=== PATIENT | female | born 1955 | race Caucasian/White ===

== ENCOUNTER 2023-04-20 13:15 | Emergency (ER) | payer OTHER, SELFPAY ==
[2023-04-20 13:25] VITALS: BP 131/87
[2023-04-20 13:46] LABS: % Basophils 0.4 % (0-2); % Eosinophils 1.1 % (0-6); % Immature Granulocytes 0.4 % (0-0.5); % Lymphocytes 12.9 % (20.5-51.1); % Monocytes 7.3 % (1.7-9.3); % Neutrophils 77.9 % (42.2-75.2); Absolute Eosinophils 0.1 10^3/uL (0-0.7); Absolute Lymphocytes 1.1 10^3/uL (1.2-3.4); Absolute Monocytes 0.6 10^3/uL (0.1-0.6); Absolute Neutrophils 6.4 10^3/uL (1.4-6.5); Hematocrit 41.4 % (37.0-47.0); Hemoglobin 14.1 g/dL (12.0-16.0); Mean Corp Hgb Conc. 34.1 g/dL (33.0-37.0); Mean Corpuscular Hgb 30.5 pg (27.0-31.0); Mean Corpuscular Volume 89.6 fL (81.0-99.0); Mean Platelet Volume 9.1 fL (7.4-10.4); Nucleated Red Blood Cells % 0 %; Platelet Count 261 10^3/uL (130-400); Red Blood Cell Count 4.62 10^6/uL (4.20-5.40); Red Cell Dist. Width 13.2 % (11.5-14.5); White Blood Cell Count 8.2 10^3/uL (4.8-10.8)
[2023-04-20 14:02] LABS: ALT (SGPT) 16 U/L (0-35); AST (SGOT) 22 U/L (14-36); Albumin 4.3 g/dl (3.5-5.0); Alkaline Phosphatase 69 U/L (38-126); Blood Urea Nitrogen 18 mg/dl (7-17); Calcium 9.6 mg/dl (8.4-10.2); Carbon Dioxide 32 mmol/L (22-30); Chloride 99 mmol/L (98-107); Glucose 107 mg/dl (70-99); Lipase 151 U/L (23-300); Potassium 3.7 mmol/L (3.5-5.1); Sodium 137 mmol/L (135-145); Total Bilirubin 0.5 mg/dl (0.2-1.3); Total Protein 7.2 g/dl (6.3-8.2)
--- NOTE | 2023-04-20 17:33 | ED.GENMED ---
History of Present Illness
General
Chief Complaint: Abdominal Pain
Time Seen by Provider: 04/20/23 17:29
Travel History
Have you had any contact with someone who has COVID-19?: No
Do you have any symptoms of coronavirus? Fever > 100 degrees, chills, cough, shortness of breath, sore throat, loss of taste or smell, muscle aches, or headache?: No
History of Present Illness
History of Present Illness:
67-year-old female presents to the emergency department for evaluation of left lower quadrant abdominal pain. Pain has been intermittent for the past week associated with bloating. Bowel movements have varied from constipation to diarrhea. Does
have an underlying history of IBS. No prior surgeries to the abdomen, does have history of transgender male to female transition surgery
Past History
Past History
ED Past Medical History: GERD (hiatal hernia) and Other (Vertigo, IBS, kidney cyst); Negative Asthma, CAD, Cancer, HTN, Hypercholesterolemia or NIDDM
ED Past Surgical History: Other (Transgender surgery )
Social History
Tobacco: Non-smoker
Alcohol: None
Personal:
Living: with family
Employment: Employed
Review of Systems
Review of Systems
Allergies reviewed?: Yes
All Other Systems: ROS reviewed and negative except as documented in HPI and ROS
Phy Exam
Physical Exam
Physical Exam:
GEN: Well appearing, NAD, WDWN
HEENT: Oral mucosa moist, no scleral icterus
Cardiac: Regular rate
Lung: No respiratory distress, no tachypnea
Abdomen: Soft, nontender, no reproducible tenderness
MSK: No gross deformity or injuries
Skin: Good color, no pallor or jaundice, no rashes
Neuro: AO x3, moves all extremities freely
Psych: Calm, cooperative
Course
Orders/Labs/Results
Orders:
Orders
04/20/23 13:32
Complete Blood Count/With Diff Urgent
Comprehensive Metabolic Panel Urgent
Lipase Urgent
04/20/23 17:43
CT Abd/Pel (IV only)-DH only Urgent
Comment:
Reason For Exam: LLQ pain
Abnormal Lab Results
04/20/23
13:32
Absolute Lymphs (auto) 1.1 L 10^3/uL
(1.2-3.4)
Neutrophils % 77.9 H %
(42.2-75.2)
Lymphocytes % 12.9 L %
(20.5-51.1)
Carbon Dioxide 32 H mmol/L
(22-30)
BUN 18 H mg/dl
(7-17)
Creatinine 1.2 H mg/dL
(0.6-1.0)
Glucose 107 H mg/dl
(70-99)
04/20/23 13:32
04/20/23 13:32
Vital Signs
Initial and Last Documented VS:
Initial Vital Signs
Temp Pulse Resp BP Pulse Ox
97.9 F 105 16 131/87 98
04/20/23 13:25 04/20/23 13:25 04/20/23 13:25 04/20/23 13:25 04/20/23 13:25
Last Documented Vital Signs
Temp Pulse Resp BP Pulse Ox
97.8 F 75 16 119/85 100
04/20/23 17:37 04/20/23 17:37 04/20/23 17:37 04/20/23 17:37 04/20/23 17:37
MDM/Problems Addressed
MDM/Problems Addressed:
Imaging is unremarkable. Patient was quite adamant that the symptoms are comparable to past bouts of diverticulitis however imaging rules this out. Urinalysis is bland and labs are otherwise unremarkable. Likely rate underlying IBS, recommend
outpatient GI follow-up
*Critical Care Note
Total Time (30-74mins, 75-104mins- exclusive of procedures): Not Applicable
ED Attending Note
-
Portions of this chart may have been created with voice recognition software.� Occasional wrong word or��sound alike� substitutions may have occurred due to the inherent limitations of voice recognition software.
Discharge Plan
Departure
Patient Disposition: Home (Routine Discharge)
Date of Disposition: 04/20/23
Time of Disposition: 18:44
Patient with high blood pressure during this ER visit?: No
Discharge Problem:
Abdominal pain, lower
Instructions: Full Liquid Diet, Abdominal Pain
Prescriptions:
No Action
citalopram 20 MG tablet
10 mg PO DAILY
estradiol 1 APPLIC cream
1 applic topical DAILY
Patient Comments:
patient has pre draw up sysringe from pharmacy
dicyclomine 20 mg Tablet
20 mg PO QIDPRN PRN (Reason: as directed)
Referrals:
NONE,* [Active] -
Interventions
Interventions:
*Risk Screen - Suicide Last Done: 04/20/23 13:25
*General Assessment Last Done: 04/20/23 13:25
*Neglect/Abuse Screening Last Done: 04/20/23 13:25
ED- Fall Risk Assessment Last Done: 04/20/23 17:42
*ED COVID-19 Vaccine History Last Done: 04/20/23 17:41
*Nursing Disposition Last Done: 04/20/23 18:50
KV-Uahfjp-Wngclfzkkg Assessment Last Done: 04/20/23 17:38
Discharge Date and Time
Discharge Date/Time: 04/20/23 18:50
[2023-04-20 17:37] VITALS: BP 119/85
[2023-04-20 17:41] VITALS: BMI 18.7
== END 2023-04-20 18:50 | disposition home or self-care (01) ==
LOC: EMR 13:15
PROVIDERS: Student in an Organized Health Care Education/Training Program; EMERGENCY PHYSICIAN Emergency Medicine; FAMILY PHYSICIAN Physician Assistant Medical
DX: R10.30 Lower abdominal pain, unspecified (principal); K21.9 Gastro-esophageal reflux disease without esophagitis; K44.9 Diaphragmatic hernia without obstruction or gangrene; K58.9 Irritable bowel syndrome, unspecified; I25.10 Atherosclerotic heart disease of native coronary artery without angina pectoris; I10 Essential (primary) hypertension; E78.00 Pure hypercholesterolemia, unspecified; E11.9 Type 2 diabetes mellitus without complications
CPT/HCPCS: 99284; 74177; 80053; 83690; 85025; Q9967

== ENCOUNTER → 2023-05-15 06:34 | Day surgery (SDC) | payer OTHER, SELFPAY | LOC: GI 06:34 | PROVIDERS: ATTENDING PHYSICIAN Internal Medicine Gastroenterology | DX: Z12.11 Encounter for screening for malignant neoplasm of colon (principal); Z86.010 Personal history of colon polyps; K57.30 Diverticulosis of large intestine without perforation or abscess without bleeding; K64.8 Other hemorrhoids; D12.0 Benign neoplasm of cecum | CPT/HCPCS: 45385; 88305 ==

== ENCOUNTER → 2023-05-28 09:48 | Outpatient (REF) | payer OTHER, SELFPAY | LOC: HWRAD 09:48 | PROVIDERS: ATTENDING PHYSICIAN Nurse Practitioner; FAMILY PHYSICIAN Physician Assistant Medical | DX: R10.13 Epigastric pain (principal) | CPT/HCPCS: 76700 ==

== ENCOUNTER → 2023-07-20 12:18 | Outpatient (REF) | payer OTHER, SELFPAY | LOC: PAVMRI 12:18 | PROVIDERS: ATTENDING PHYSICIAN Internal Medicine Gastroenterology; FAMILY PHYSICIAN Physician Assistant Medical | DX: R10.13 Epigastric pain (principal); K76.89 Other specified diseases of liver | CPT/HCPCS: 74185; A9585 ==

== ENCOUNTER 2023-08-07 18:06 | Emergency (ER) | payer OTHER, SELFPAY ==
[2023-08-07 18:11] VITALS: BP 137/94
--- NOTE | 2023-08-07 18:50 | ED.GENMED ---
History of Present Illness
<Nickie Negrete PA-C - Last Filed: 08/08/23 02:34>
General
Chief Complaint: Abdominal Pain
Source: patient
Exam Limitations: none
Time Seen by Provider: 08/07/23 18:48
Nursing documentation reviewed up to this point in time: agreed with
Travel History
Have you had any contact with someone who has COVID-19?: No
Do you have any symptoms of coronavirus? Fever > 100 degrees, chills, cough, shortness of breath, sore throat, loss of taste or smell, muscle aches, or headache?: No
History of Present Illness
History of Present Illness:
This is a 68-year-old transgender woman with a past medical history of coronary artery disease, IBS, diverticulitis, gallstones presenting emergency department today with acute on chronic abdominal pain. Patient states that she started with this
pain last night around 11 PM. Patient states that the pain comes and goes. She notes that in the periumbilical region as well as generalized lower abdominal pain. Patient states that this is associated occasionally with left sided lower back
pain. Patient denies dysuria, hematuria nausea, vomiting, fevers, chills. Patient does have increased urgency to have a bowel movement but has had no diarrhea. Patient also admits to urinary frequency. Patient follows with Dr. Mack
(Gastroenterology) as an outpatient who she sees due to her history of colon polyp and diverticulitis, as well as persistent symptoms of abdominal bloating occasional bouts of pain.
Past History
<Nickie Negrete PA-C - Last Filed: 08/08/23 02:34>
Past History
ED Past Medical History: GERD (hiatal hernia) and Other (Vertigo, IBS, kidney cyst); Negative Asthma, CAD, Cancer, HTN, Hypercholesterolemia or NIDDM
ED Past Surgical History: Other (Transgender surgery )
Social History
Tobacco: Non-smoker
Alcohol: None
Personal:
Living: with family
Employment: Employed
Review of Systems
<Nickie Negrete PA-C - Last Filed: 08/08/23 02:34>
Review of Systems
All Other Systems: ROS reviewed and negative except as documented in HPI and ROS
Phy Exam
<Nickie Negrete PA-C - Last Filed: 08/08/23 02:34>
Physical Exam
Physical Exam:
General: Patient is well appearing and in no acute distress; non-toxic
Skin: Warm and dry, no rashes or lesions
Head: Normocephalic, atraumatic
Eyes: Sclera non-icteric. EOMs intact. PERRLA.
Cardiac: Regular rate and rhythm
Peripheral Vascular: No lower extremity edema
Pulm: Normal respiratory effort
Abdomen: No palpable abdominal masses, no surgical scars, abdomen soft, mild tenderness to palpation in the epigastrium and lower abdominal no quadrants. Patient has no CVA tenderness bilaterally.
Neuro: CN II-XII intact, no focal neurologic deficits.
Psychiatric: Appropriate mood and affect.
Course
<Nickie Negrete PA-C - Last Filed: 08/08/23 02:34>
Orders/Labs/Results
Orders:
Orders
08/07/23 19:03
IV Insert/Care/Rem.- Treatment PRN
Ketorolac [Toradol] 15 mg IV NOW STA
08/07/23 19:37
Complete Blood Count/With Diff Urgent
Comprehensive Metabolic Panel Urgent
Lipase Urgent
08/07/23 19:41
Urinalysis Reflex To Culture Urgent
Date Specimen was Collected: 08/07/23
Time Specimen was Collected: 19:38
08/07/23 20:14
CT Abd/pelvis W Iv Cont Urgent
Comment:
Reason For Exam: mid and LLQ pain
08/07/23 21:30
Acetaminophen [Tylenol] 650 mg PO NOW STA
08/07/23 21:38
Magnesium Citrate [Citroma] 300 ml PO ONCE ONE
08/07/23 21:39
MetroNIDAZOLE [Flagyl] 500 mg PO NOW STA
08/07/23 21:49
Oxycodone [Roxicodone] 5 mg PO NOW STA
08/07/23 22:00
Ciprofloxacin HCl [Cipro] 500 mg PO BID
Abnormal Lab Results
08/07/23 08/07/23
19:37 19:41
WBC 13.0 H 10^3/uL
(4.8-10.8)
RBC 4.14 L 10^6/uL
(4.70-6.10)
Hgb 12.5 L g/dL
(13.0-18.0)
Hct 36.2 L %
(39.0-52.0)
Abs Immat Gran (auto) 0.1 H 10^3/uL
(0-0.05)
Absolute Neuts (auto) 10.7 H 10^3/uL
(1.4-6.5)
Absolute Lymphs (auto) 1.1 L 10^3/uL
(1.2-3.4)
Absolute Monos (auto) 1.0 H 10^3/uL
(0.1-0.6)
Neutrophils % 82.3 H %
(42.2-75.2)
Lymphocytes % 8.8 L %
(20.5-51.1)
BUN 21 H mg/dl
(9-20)
Glucose 106 H mg/dl
(70-99)
Lipase 446 H U/L
(23-300)
Urine Ketones Trace A
(Negative)
08/07/23 19:37
08/07/23 19:37
Vital Signs
Initial and Last Documented VS:
Initial Vital Signs
Temp Pulse Resp BP Pulse Ox
98.2 F 111 18 137/94 100
08/07/23 18:11 08/07/23 18:11 08/07/23 18:11 08/07/23 18:11 08/07/23 18:11
Last Documented Vital Signs
Temp Pulse Resp BP Pulse Ox
98.2 F 83 18 107/67 99
08/07/23 18:11 08/07/23 21:20 08/07/23 21:20 08/07/23 21:20 08/07/23 21:20
<Quentin Garcia, DO - Last Filed: 08/07/23 20:17>
Orders/Labs/Results
Orders:
Orders
08/07/23 19:03
IV Insert/Care/Rem.- Treatment PRN
Ketorolac [Toradol] 15 mg IV NOW STA
08/07/23 19:37
Complete Blood Count/With Diff Urgent
Comprehensive Metabolic Panel Urgent
Lipase Urgent
08/07/23 19:41
Urinalysis Reflex To Culture Urgent
Date Specimen was Collected: 08/07/23
Time Specimen was Collected: 19:38
08/07/23 20:14
CT Abd/pelvis W Iv Cont Urgent
Comment:
Reason For Exam: mid and LLQ pain
08/07/23 21:30
Acetaminophen [Tylenol] 650 mg PO NOW STA
08/07/23 21:38
Magnesium Citrate [Citroma] 300 ml PO ONCE ONE
08/07/23 21:39
MetroNIDAZOLE [Flagyl] 500 mg PO NOW STA
08/07/23 21:49
Oxycodone [Roxicodone] 5 mg PO NOW STA
08/07/23 22:00
Ciprofloxacin HCl [Cipro] 500 mg PO BID
Abnormal Lab Results
08/07/23 08/07/23
19:37 19:41
WBC 13.0 H 10^3/uL
(4.8-10.8)
RBC 4.14 L 10^6/uL
(4.70-6.10)
Hgb 12.5 L g/dL
(13.0-18.0)
Hct 36.2 L %
(39.0-52.0)
Abs Immat Gran (auto) 0.1 H 10^3/uL
(0-0.05)
Absolute Neuts (auto) 10.7 H 10^3/uL
(1.4-6.5)
Absolute Lymphs (auto) 1.1 L 10^3/uL
(1.2-3.4)
Absolute Monos (auto) 1.0 H 10^3/uL
(0.1-0.6)
Neutrophils % 82.3 H %
(42.2-75.2)
Lymphocytes % 8.8 L %
(20.5-51.1)
BUN 21 H mg/dl
(9-20)
Glucose 106 H mg/dl
(70-99)
Lipase 446 H U/L
(23-300)
Urine Ketones Trace A
(Negative)
08/07/23 19:37
08/07/23 19:37
Vital Signs
Initial and Last Documented VS:
Initial Vital Signs
Temp Pulse Resp BP Pulse Ox
98.2 F 111 18 137/94 100
08/07/23 18:11 08/07/23 18:11 08/07/23 18:11 08/07/23 18:11 08/07/23 18:11
Last Documented Vital Signs
Temp Pulse Resp BP Pulse Ox
98.2 F 83 18 107/67 99
08/07/23 18:11 08/07/23 21:20 08/07/23 21:20 08/07/23 21:20 08/07/23 21:20
<Nickie Negrete PA-C - Last Filed: 08/08/23 02:34>
MDM/Problems Addressed
Differential Diagnosis Includes:
Differentials include nephrolithiasis, cystitis, possible pyelonephritis, irritable bowel syndrome, appendicitis, cholecystitis, gastritis
MDM/Problems Addressed:
Abdominal pain
Chronic conditions affecting care:
Diverticulitis, colon polyp, coronary artery disease, IBS, known gallstones, transgender
Acute Exacerbation and/or Progression of Chronic Illness:
Diverticulitis, colon polyp, coronary artery disease, IBS, known gallstones, transgender
<Nickie Negrete PA-C - Last Filed: 08/08/23 02:34>
*Pulse Oximetry
Patient hypoxic: no
*Critical Care Note
Total Time (30-74mins, 75-104mins- exclusive of procedures): Not Applicable
Data Reviewed
Review of Other/Old Records Reveals: Records, Radiology Studies (Reviewed MRA results done in June, which showed no evidence of SMA syndrome or median arcuate ligament syndrome but did show some liver cysts in the liver and kidneys as well as the
presence of gallstones), Operative Reports (Reviewed colonoscopy report in which a 10 mm polyp was found in the cecum and was removed) and Discharge Summary (reviewed discharge summary from 06/10/22--patient was admitted for abdominal pain due to
elevated lipase, discharge diagnosis was possible IBS/mild gastritis, no evidence of pancreatitis on imaging)
Source: patient and records
<Nickie Negrete PA-C - Last Filed: 08/08/23 02:34>
Patient Management
Escalation/DeEscalation of care consider admission/obs:
14-year-old transgender woman with past medical history of diverticulitis presenting for department today with abdominal pain. Patient has outpatient GI that she starts with and was prescribed Cipro and Flagyl to take, patient has not started this
yet because her pain got worse and so she presented emergency department. On exam, patient is well-appearing, she does have some periumbilical tenderness and lower abdominal tenderness but no palpable masses. She is afebrile, and her vitals are
stable. Her CT scan demonstrates acute diverticulitis as well as acute diverticulitis, we will give patient a dose of antibiotics here and will advise patient to take her antibiotics as prescribed. Considering patient has had a constipation, we
will send her him some magnesium citrate. Lipase today was elevated at 446, no evidence of pancreatitis on CT, advised patient to have these values repeated and follow-up with her primary. Patient in agreement with plan, return precautions given,
patient stable for discharge.
ED Attending Note
<Nickie Negrete PA-C - Last Filed: 08/08/23 02:34>
-
Portions of this chart may have been created with voice recognition software.� Occasional wrong word or��sound alike� substitutions may have occurred due to the inherent limitations of voice recognition software.
<Quentin Garcia DO - Last Filed: 08/07/23 20:17>
ED Attending Note
Patient seen and examined by attending physician: Yes
I performed the substantive portion of visit, reviewed & personally made and approve the management plan that is documented in note by myself or VIDA.: Yes
ED Attending Note:
I have seen and evaluated the patient with a [id number] encounter. I have spoken to the advance practicer provider and involved in the medical history, the physical exam, medical decision making.
Evaluation and management service: agree unless noted differently below.
Results interpretation: agree unless noted differently below.
Focused HPI: 68-year-old male (identifies as female) presents with worsening and intermittent abdominal pain. Pain is localized to left lower quadrant. She is concerned this could be recurrent diverticulitis. Patient states she was admitted in
the past for sepsis secondary to diverticulitis. She talk to her GI doctor earlier today and was prescribed ciprofloxacin and Flagyl. She has not taken the medicine yet. She was told to go to the emergency department if pain worsened. Patient
also concerned she could be constipated
Physical exam: Significant comfortably. Mild left lower quadrant pain without rebound
Medical Decision Making: Given her history, will obtain CT to rule out diverticulitis and possibly constipation. Patient states she had recent MR abdomen and there is no evidence of kidney stone
Discharge Plan
Departure
Patient Disposition: Home (Routine Discharge)
Date of Disposition: 08/07/23
Time of Disposition: 21:54
Patient with high blood pressure during this ER visit?: Yes
Condition: Good
Discharge Problem:
Diverticulitis
Instructions: Constipation, Adult (DC), Diverticulitis (DC), Abdominal Pain, BLOOD PRESSURE
Prescriptions:
No Action
citalopram 20 MG tablet
10 mg PO DAILY
estradiol 1 APPLIC cream
1 applic topical DAILY
Patient Comments:
patient has pre draw up sysringe from pharmacy
dicyclomine 20 mg Tablet
20 mg PO QIDPRN PRN (Reason: as directed)
Referrals:
Catrina Boykin PA-C [Family Provider] -
Activity Restrictions/Additional Instructions:
As discussed, please take the one time dose of magnesium citrate tomorrow morning. Please drink the whole bottle.
Please take your antibiotics as prescribed by your GI doctor.
Please alternate Tylenol and Motrin for pain control. Should you have breakthrough pain, you can take 1 oxycodone tablet every 8 hours as needed.
Please return emergency department should you develop acute worsening of your pain, fevers or chills, intractable vomiting, or other concerning signs or symptoms.
Please follow-up with your primary care provider.
Interventions
Interventions:
*Risk Screen - Suicide Last Done: 08/07/23 19:39
*General Assessment Last Done: 08/07/23 19:39
*Neglect/Abuse Screening Last Done: 08/07/23 19:39
ED- Fall Risk Assessment Last Done: 08/07/23 20:13
*ED COVID-19 Vaccine History Last Done: 08/07/23 19:39
*Nursing Disposition Last Done: 08/07/23 22:02
HQ-Bcnzij-Cidzlkvgpx Assessment Last Done: 08/07/23 20:12
Discharge Date and Time
Discharge Date/Time: 08/07/23 22:05
Print Language: CYMRAES
[2023-08-07] MEDS: TORADOL 15 MG IV (19:33)
[2023-08-07 19:47] LABS: % Basophils 0.2 % (0-2); % Eosinophils 0.5 % (0-6); % Immature Granulocytes 0.5 % (0-0.5); % Lymphocytes 8.8 % (20.5-51.1); % Monocytes 7.7 % (1.7-9.3); % Neutrophils 82.3 % (42.2-75.2); Absolute Eosinophils 0.1 10^3/uL (0-0.7); Absolute Immature Granulocytes 0.1 10^3/uL (0-0.05); Absolute Lymphocytes 1.1 10^3/uL (1.2-3.4); Absolute Neutrophils 10.7 10^3/uL (1.4-6.5); Hematocrit 36.2 % (39.0-52.0); Hemoglobin 12.5 g/dL (13.0-18.0); Mean Corp Hgb Conc. 34.5 g/dL (33.0-37.0); Mean Corpuscular Hgb 30.2 pg (27.0-31.0); Mean Corpuscular Volume 87.4 fL (80.0-94.0); Mean Platelet Volume 9.1 fL (7.4-10.4); Nucleated Red Blood Cells % 0 % (-); Platelet Count 233 10^3/uL (130-400); Red Blood Cell Count 4.14 10^6/uL (4.70-6.10); Red Cell Dist. Width 12.9 % (11.5-14.5)
[2023-08-07 19:48] LABS: Urine Albumin Negative (Neg - Trace); Urine Bilirubin Negative (Negative); Urine Character Clear (Clear); Urine Color Yellow; Urine Glucose Negative (Negative); Urine Ketone Trace (Negative); Urine Leukocyte Negative (Negative); Urine Nitrite Negative (Negative); Urine Occult Blood Negative (Negative); Urine Urobilinogen Negative (Neg - 1+)
[2023-08-07 19:59] LABS: ALT (SGPT) 12 U/L (0-50); AST (SGOT) 20 U/L (17-59); Albumin 3.9 g/dl (3.5-5.0); Alkaline Phosphatase 70 U/L (38-126); Blood Urea Nitrogen 21 mg/dl (9-20); Calcium 9.3 mg/dl (8.4-10.2); Carbon Dioxide 30 mmol/L (22-30); Chloride 98 mmol/L (98-107); Glucose 106 mg/dl (70-99); Lipase 446 U/L (23-300); Potassium 3.8 mmol/L (3.5-5.1); Sodium 135 mmol/L (135-145); Total Bilirubin 0.4 mg/dl (0.2-1.3); Total Protein 6.8 g/dl (6.3-8.2); eGFR > 60.00
[2023-08-07 21:20] VITALS: BP 107/67
[2023-08-07] MEDS: CIPRO 500 MG PO (21:48)
[2023-08-07] MEDS: CITROMA 300 ML PO (21:48)
[2023-08-07] MEDS: TYLENOL 650 MG PO (21:48)
[2023-08-07] MEDS: FLAGYL 500 MG PO (21:48)
[2023-08-07] MEDS: ROXICODONE 5 MG PO (21:56)
== END 2023-08-07 22:05 | disposition home or self-care (01) ==
LOC: EMR 18:06
PROVIDERS: Physician Assistant; EMERGENCY PHYSICIAN Student in an Organized Health Care Education/Training Program; FAMILY PHYSICIAN Physician Assistant Medical
DX: R10.9 Unspecified abdominal pain (principal); I25.10 Atherosclerotic heart disease of native coronary artery without angina pectoris; K58.9 Irritable bowel syndrome, unspecified; K21.9 Gastro-esophageal reflux disease without esophagitis; K44.9 Diaphragmatic hernia without obstruction or gangrene; Z87.19 Personal history of other diseases of the digestive system
CPT/HCPCS: 99284; 96374; 74177; 80053; 81003; 83690; 85025; Q9967

== ENCOUNTER → 2023-09-25 07:23 | Outpatient (REF) | payer OTHER, SELFPAY | LOC: DHCBC/DCA 07:23 | PROVIDERS: ATTENDING PHYSICIAN Internal Medicine Cardiovascular Disease; FAMILY PHYSICIAN Physician Assistant Medical | DX: I44.7 Left bundle-branch block, unspecified (principal) | CPT/HCPCS: 78452; 93017; A9500; J2785 ==

== ENCOUNTER → 2023-10-07 06:32 | Day surgery (SDC) | payer OTHER, SELFPAY | LOC: GI 06:32 | PROVIDERS: ATTENDING PHYSICIAN Internal Medicine Gastroenterology; FAMILY PHYSICIAN Physician Assistant Medical | DX: K29.50 Unspecified chronic gastritis without bleeding (principal); K57.10 Diverticulosis of small intestine without perforation or abscess without bleeding; R10.13 Epigastric pain | CPT/HCPCS: 43239; 88305; 88342 ==

== ENCOUNTER → 2024-01-26 10:05 | Outpatient (REF) | payer OTHER, SELFPAY ==
[2024-01-26 12:53] LABS: HDL Cholesterol 86 mg/dl; LDL Cholesterol, Calculated 68 mg/dl; Total Cholesterol 171 mg/dl (50-199); Triglyceride 88 mg/dl (10-149); Very Low Density Lipoprotein 17 mg/dl (0-30)
== END ==
LOC: HWLAB 10:05
PROVIDERS: ATTENDING PHYSICIAN Internal Medicine Cardiovascular Disease; FAMILY PHYSICIAN Physician Assistant Medical
DX: I25.10 Atherosclerotic heart disease of native coronary artery without angina pectoris (principal)
CPT/HCPCS: 36415; 80061

== ENCOUNTER → 2024-04-26 12:20 | Outpatient (REF) | payer OTHER, SELFPAY | LOC: HWRAD 12:20 | PROVIDERS: ATTENDING PHYSICIAN Physician Assistant Medical | DX: R10.84 Generalized abdominal pain (principal) | CPT/HCPCS: 76700 ==

== ENCOUNTER 2024-11-10 15:36 | Emergency (ER) | payer OTHER, SELFPAY ==
[2024-11-10 15:38] VITALS: BP 164/77
[2024-11-10 16:00] LABS: Hematocrit 40.8 % (39.0-52.0); Hemoglobin 13.5 g/dL (13.0-18.0); Mean Corp Hgb Conc. 33.1 g/dL (33.0-37.0); Mean Corpuscular Volume 90.3 fL (80.0-94.0); Nucleated Red Blood Cells % 0 % (-); Platelet Count 264 10^3/uL (130-400); Red Cell Dist. Width 13.3 % (11.5-14.5)
[2024-11-10 16:23] LABS: ALT (SGPT) 14 U/L (0-50); AST (SGOT) 19 U/L (17-59); Albumin 4.5 g/dl (3.5-5.0); Alkaline Phosphatase 56 U/L (38-126); Blood Urea Nitrogen 23 mg/dl (9-20); Calcium 9.6 mg/dl (8.4-10.2); Carbon Dioxide 28 mmol/L (22-30); Chloride 104 mmol/L (98-107); Glucose 103 mg/dl (70-99); Potassium 4.2 mmol/L (3.5-5.1); Sodium 138 mmol/L (135-145); Total Protein 7.3 g/dl (6.3-8.2); eGFR > 60.00
[2024-11-10 16:25] LABS: Troponin I < 0.012 ng/ml
[2024-11-10 19:29] VITALS: BP 146/69
--- NOTE | 2024-11-10 20:47 | ED.GENMED ---
History of Present Illness
General
Chief Complaint: Cardiac Symptoms
Source: patient
Exam Limitations: none
Time Seen by Provider: 11/10/24 20:47
History of Present Illness
History of Present Illness:
69-year-old trans female presents with episodes of a flushing sensation that occurs from her mid abdomen up to her chest and arms. This been going on for months. Not exertional. Initially happening at rest. Now happening at other times. No
chest pain shortness of breath pleuritic pain fever cough etc. Under significant stress with her mom living at home with her. Patient had an EKG done at the primary office and there was some concerns for some subtle changes. Because of this it
was recommended to have ER evaluation
Past History
Past History
ED Past Medical History: GERD (hiatal hernia) and Other (Vertigo, IBS, kidney cyst); Negative Asthma, CAD, Cancer, HTN, Hypercholesterolemia or NIDDM
ED Past Surgical History: Other (Transgender surgery )
Social History
Tobacco: Non-smoker
Alcohol: None
Personal:
Living: with family
Employment: Employed
Review of Systems
Review of Systems
All Other Systems: Not applicable
Constitutional: Denies fever
Respiratory: Denies trouble breathing
Cardiac: Denies chest pain or syncope
Phy Exam
Physical Exam
Physical Exam:
GENERAL: Alert and oriented in no apparent distress
EYE: Orbits normal.
NECK: Supple, no thyroid palpable
ENT: Pharynx without erythema
CARDIAC: Regular rate and rhythm without any obvious murmurs.
LUNGS: Clear breath sounds,normal
ABDOMEN: Soft, without focal tenderness or distention
NEUROLOGICAL: Alert and oriented , grossly non-focal
SKIN: Warm and dry, no rash or lesion, no discoloration, skin intact.
MUSCULOSKELETAL: No edema,no deformity.Good color
PSYCH: Normal and appropriate interaction.
Course
Orders/Labs/Results
Orders:
Orders
11/10/24 15:40
Electrocardiogram (*1) Urgent
Reason for Study: Shortness of Breath
EKG- Treatment ONCE
11/10/24 15:50
Complete Blood Count/With Diff Urgent
Comprehensive Metabolic Panel Urgent
TSH Reflex To Free T4 Urgent
Troponin I Urgent
11/10/24 21:00
Add On- LAB Urgent
Tests Added?: tsh reflex t4
11/10/24 21:18
D-Dimer Urgent
Abnormal Lab Results
11/10/24
15:50
RBC 4.52 L 10^6/uL
(4.70-6.10)
Absolute Lymphs (auto) 1.1 L 10^3/uL
(1.2-3.4)
Lymphocytes % 15.5 L %
(20.5-51.1)
BUN 23 H mg/dl
(9-20)
Glucose 103 H mg/dl
(70-99)
11/10/24 15:50
11/10/24 15:50
Vital Signs
Initial and Last Documented VS:
Initial Vital Signs
Temp Pulse Resp BP Pulse Ox
98.1 F 90 16 164/77 100
11/10/24 15:38 11/10/24 15:38 11/10/24 15:38 11/10/24 15:38 11/10/24 15:38
Last Documented Vital Signs
Temp Pulse Resp BP Pulse Ox
98.1 F 63 20 133/69 97
11/10/24 15:38 11/10/24 22:30 11/10/24 19:29 11/10/24 22:00 11/10/24 20:48
MDM/Problems Addressed
Differential Diagnosis Includes:
Flushing sensation intermittent x 1+ month. No exertional symptoms. No chest pain no shortness of breath. Highly doubt pulmonary emboli but on estrogen therapy will check D-dimer. Also check TSH. Troponin negative. I am not impressed with any
acute EKG changes either on our EKG or on the 1 from the office.
*Pulse Oximetry
SaO2: 97
Oxygen Mode of Delivery: Room air
Patient hypoxic: no
*EKG
Interpreted by ED Provider?: Yes
Interpretation: abnormal
Heart Rate: 72
Rate: normal
Rhythm: sinus
[place]: left axis deviation
Interval: normal interval
QRS Pattern: left bundle branch block
Ischemia: non-specific ST changes
*Critical Care Note
Total Time (30-74mins, 75-104mins- exclusive of procedures): Not Applicable
Data Reviewed
Review of Other/Old Records Reveals: Labs, Records and Testing
Update Note
Update Note:
Patient has remained stable and nontoxic. No distress. I do not appreciate any EKG changes. Fairly atypical for cardiac. We will how I will refer her back to her cereal maker for follow-up. TSH pending although recent TSH was stable. She had
mentioned the possibility of serotonin syndrome which I feel is unlikely but she can discuss her citalopram with her primary physician.
ED Attending Note
-
Portions of this chart may have been created with voice recognition software.� Occasional wrong word or��sound alike� substitutions may have occurred due to the inherent limitations of voice recognition software.
Discharge Plan
Departure
Patient Disposition: Home (Routine Discharge)
Date of Disposition: 11/10/24
Time of Disposition: 22:22
Patient with high blood pressure during this ER visit?: Yes
Discharge Problem:
Episodic flushing, Occasional dyspnea
Instructions: Chest Pain (DC), Chest Pain CBC Follow Up, BLOOD PRESSURE
Prescriptions:
No Action
citalopram 20 MG tablet
10 mg PO DAILY
estradiol 1 APPLIC cream
1 applic topical DAILY
Patient Comments:
patient has pre draw up sysringe from pharmacy
dicyclomine 20 mg Tablet
20 mg PO QIDPRN PRN (Reason: as directed)
Referrals:
Catrina Boykin PA-C [Family Provider, Family Practice] - Follow up in 2-3 days
Interventions
Interventions:
*Risk Screen - Suicide Last Done: 11/10/24 15:40
*Neglect/Abuse Screening Last Done: 11/10/24 15:40
*Nursing Disposition Last Done: 11/10/24 22:48
ED- Pulmonary Assessment Last Done: 11/10/24 22:47
ED- Cardiac Assessment Last Done: 11/10/24 22:47
Discharge Date and Time
Discharge Date/Time: 11/10/24 22:55
Print Language: AZERI
[2024-11-10 21:16] VITALS: BP 141/74
[2024-11-10 21:48] LABS: D-Dimer < 0.27 ug/mlFEU (0.00-0.50)
[2024-11-10 22:00] VITALS: BP 133/69
== END 2024-11-10 22:55 | disposition home or self-care (01) ==
LOC: EMR 15:36
PROVIDERS: Emergency Medicine; EMERGENCY PHYSICIAN Emergency Medicine; FAMILY PHYSICIAN Physician Assistant Medical
DX: R23.2 Flushing (principal); R06.00 Dyspnea, unspecified; K21.9 Gastro-esophageal reflux disease without esophagitis
CPT/HCPCS: 99284; 80053; 84443; 84484; 85025; 85379; 93005

== ENCOUNTER → 2024-11-11 13:40 | Outpatient (REF) | payer OTHER, SELFPAY | LOC: HWRAD 13:40 | PROVIDERS: ATTENDING PHYSICIAN Physician Assistant Medical | DX: M25.561 Pain in right knee (principal) | CPT/HCPCS: 73564 ==

== ENCOUNTER → 2024-12-26 12:53 | Outpatient (REF) | payer OTHER, SELFPAY | LOC: HWRCS 12:53 | PROVIDERS: ATTENDING PHYSICIAN Nurse Practitioner; FAMILY PHYSICIAN Physician Assistant Medical | DX: I25.10 Atherosclerotic heart disease of native coronary artery without angina pectoris (principal); I45.10 Unspecified right bundle-branch block; I44.7 Left bundle-branch block, unspecified; R53.83 Other fatigue; R06.09 Other forms of dyspnea | CPT/HCPCS: 93306 ==

== ENCOUNTER → 2025-01-03 10:57 | Outpatient (REF) | payer OTHER, SELFPAY | LOC: HWRCS 10:57 | PROVIDERS: ATTENDING PHYSICIAN Nurse Practitioner; FAMILY PHYSICIAN Physician Assistant Medical | DX: I45.10 Unspecified right bundle-branch block (principal); I44.7 Left bundle-branch block, unspecified; R53.83 Other fatigue; R06.09 Other forms of dyspnea | CPT/HCPCS: 78452; 93017; A9500; J2785 ==

== ENCOUNTER 2025-01-11 06:00 | Day surgery (SDC) | payer OTHER, SELFPAY ==
[2025-01-06 12:52] VITALS: BMI 18.1
[2025-01-06 13:20] LABS: Hematocrit 43.6 % (39.0-52.0); Hemoglobin 14.5 g/dL (13.0-18.0); Mean Corp Hgb Conc. 33.3 g/dL (33.0-37.0); Mean Corpuscular Volume 91.8 fL (80.0-94.0); Nucleated Red Blood Cells % 0 % (-); Platelet Count 280 10^3/uL (130-400); Red Cell Dist. Width 13.4 % (11.5-14.5)
[2025-01-06 13:49] LABS: ALT (SGPT) 16 U/L (0-50); AST (SGOT) 21 U/L (17-59); Albumin 4.7 g/dl (3.5-5.0); Alkaline Phosphatase 58 U/L (38-126); Blood Urea Nitrogen 21 mg/dl (9-20); Calcium 9.6 mg/dl (8.4-10.2); Carbon Dioxide 30 mmol/L (22-30); Chloride 103 mmol/L (98-107); Estimated Creatinine Clearance 53 ml/min; Glucose 96 mg/dl (70-99); Potassium 4.5 mmol/L (3.5-5.1); Sodium 139 mmol/L (135-145); Total Protein 7.5 g/dl (6.3-8.2); eGFR > 60.00
[2025-01-11] VITALS (14 sets, daily range): BP systolic 115–153; BP diastolic 57–80
[2025-01-11] MEDS: NSS 182 ML IV (07:15)
--- NOTE | 2025-01-11 08:15 | ITS.CL.CATH ---
Angle Dozer Operator - Catheterization
Cardiac Catheterization
Procedure Report:
CARDIAC CATHETERIZATION REPORT
Date of Procedure: 01/11/2025
Referring: Derek Solorio M.D.
INDICATION: Atypical chest symptoms, abnormal stress test.
PROCEDURE:
1. Left heart catheterization.
2. Coronary angiography.
A total of 15 minutes of procedural/moderate sedation was utilized. An independent medical administrative technician was present to assist with and help manage the patient's level of consciousness and physiologic status.
ACCESS:
1. 6 [place] right radial artery using a modified Seldinger technique.
CATHETERS:
1. 5 [place] JR4.
2. 5 [place] JL 3.5.
HEMODYNAMIC DATA
Weight (kg): 60.6
AO (s/d/x, mmHg): 129/70/98
LV (s/x mmHg): 129/16
AV gradient (x, mmHg): None.
LEFT VENTRICULOGRAPHY: Not performed.
CORONARY ANGIOGRAPHY
Dominance: Right.
Left Main: Normal size, bifurcating vessel. There is no coronary artery disease.
LAD: Normal size vessel giving rise to 2 diagonals. There is minor tapering of the ostium of D2.
Ramus: Congenitally absent.
Circumflex: Normal size, nondominant vessel giving rise to 1 obtuse marginal which subsequently bifurcates into 2 small to medium size daughter branches. There is no coronary artery disease. There is a hairpin tortuosity turn of the AV
groove circumflex after the origin of OM1.
RCA: Normal size, dominant vessel. There are minor luminal irregularities in the proximal and mid vessel.
INTERVENTION(S)
None.
Closure Device: Vascular band.
Radiation (mGy): 150.7
DAP (cm2.Gy): 9.1713
Fluoroscopy time (minutes): 1.9
CONCLUSIONS
1. Right dominant circulation with minor luminal irregularities in the RCA as well as mild ostial tapering of D2.
2. Mildly elevated filling pressures (LVEDP = 16 mmHg at 60.6 kg).
RECOMMENDATIONS:
1. Expectant management after cardiac catheterization via right radial approach.
2. Limited weight bearing on the right wrist for one week.
3. Aggressive primary prevention given documentation of atherosclerotic disease including aspirin 81 mg daily, high-dose, high potency statin. Goal LDL <55.
4. Given the symptoms including some shortness of breath with exertion, furosemide 20 mg daily will be started given the mild elevation in filling pressures. BMP in 1 week.
5. The myocardial perfusion is a false positive.
6. Stable for outpatient follow-up.
Copy to: Derek Solorio M.D., Catrina Boykin PA-C
Logan Patel DO, FACC, FACP
[2025-01-11] MEDS: NSS 1000 IV (09:23)
== END 2025-01-11 13:00 | disposition home or self-care (01) ==
LOC: CATH 06:00
PROVIDERS: ATTENDING PHYSICIAN Internal Medicine Cardiovascular Disease; FAMILY PHYSICIAN Physician Assistant Medical; OTHER PHYSICIAN Internal Medicine Cardiovascular Disease
DX: R07.89 Other chest pain (principal); R94.39 Abnormal result of other cardiovascular function study; I45.2 Bifascicular block; I42.9 Cardiomyopathy, unspecified; I50.32 Chronic diastolic (congestive) heart failure; N40.0 Benign prostatic hyperplasia without lower urinary tract symptoms; K58.9 Irritable bowel syndrome, unspecified; K21.9 Gastro-esophageal reflux disease without esophagitis; K57.90 Diverticulosis of intestine, part unspecified, without perforation or abscess without bleeding; Z79.899 Other long term (current) drug therapy; Z79.82 Long term (current) use of aspirin; Z88.0 Allergy status to penicillin; Z88.5 Allergy status to narcotic agent; Z91.048 Other nonmedicinal substance allergy status; Z80.9 Family history of malignant neoplasm, unspecified; Z82.49 Family history of ischemic heart disease and other diseases of the circulatory system; Z83.3 Family history of diabetes mellitus; Z83.49 Family history of other endocrine, nutritional and metabolic diseases
CPT/HCPCS: 99152; 36415; 80053; 85025; 93005; 93458; C1769; C1894; Q9967

== ENCOUNTER → 2025-03-14 12:10 | Outpatient (REF) | payer OTHER, SELFPAY | LOC: MRI 3T 12:10 | PROVIDERS: ATTENDING PHYSICIAN Internal Medicine Gastroenterology; FAMILY PHYSICIAN Physician Assistant Medical | DX: R23.2 Flushing (principal); R14.0 Abdominal distension (gaseous); K58.1 Irritable bowel syndrome with constipation | CPT/HCPCS: 72197; 74183; A9575 ==